=== PATIENT | male | born 1960 | race Caucasian/White ===

== ENCOUNTER 2019-04-19 08:51 | Outpatient (CLI) | payer OTHER ==
[~2019-04-19] VITALS: Ht 185.4 cm; Wt 88.6 kg
--- NOTE | ~2019-04-19 | HEMODYNAMI ---
PATIENT:LJ MCMILLAN MEDICAL RECORD: [id number] : 58 LOCATION:D.CAT ADMISSION DATE: 04/19/19 Generatedon:04/19/201913:20 Patient name: LJ MCMILLAN Patient #: [id number] SSN: : 1960 Date of study: 04/19/2019 Page: Of Hemodynamic Procedure Report Patient Data Patient Demographics Procedure consent was obtained First Name: LJ Gender: Male Last Name: HIPOLITO : 1960 Middle Initial: A Age: 58 year(s) Patient #: [id number] Race: Unknown Additional ID: [id number] Contact details [address]: [address] [place] [address] State: [place] City: [place] Zip code: [address] Admission Admission Data Admission Date: 04/19/2019 Admission Time: 8:51 Admit Source: Emergency department Procedure Procedure Types Cath Procedure Diagnostic Procedure LHC LHC w/Coronaries FFR/IVUS FFR Initial Sedation Charges Moderate Sedation up to 30 minutes PCI Procedure PTCA PTCA Initial Procedure Description Procedure Date Procedure Date: 04/19/2019 Procedure Start Time: 12:33 Procedure End Time: 13:18 Procedure Staff Name Function Dany Bonner MD Performing Physician Wendy Treadwell RT Monitor Miguel Villanueva RT Scrub Jillian Castaneda RN Nurse Anthony Finney RN Weir Fisherman Procedure Data Cath Procedure Fluoroscopy Diagnostic fluoroscopy Total fluoroscopy Time: 17 time: 17 min min Diagnostic fluoroscopy Total fluoroscopy dose: dose: 1240 mGy 1240 mGy Contrast Material Contrast Material Type Amount (ml) Isovue 300 168 Entry Location Entry Primary Successful Side Size Upsize Upsize Entry Closure Succes sful Closure Location (Fr) 1 (Fr) 2 (Fr) Remarks Device Remarks Radial Right 6 Fr artery Short Femoral Right 6 Fr 7 Fr Exoseal artery Short Short Estimated blood loss: 10 ml Diagnostic catheters Device Type Used For End Catheter Placement DIAGNOSTIC Sherman 110cm 5 Procedure Fr catheter ([id number]) Procedure Complications No complications Procedure Medications Medication Administration Route Dosage 0.9% NaCl I.V. 100 ml/hr Oxygen etCO2 Nasal cannula 2 l/min Lidocaine 2% added to field 20 Heparin Flush Bag added to field 2 bags (1000units/500ml NS) Radial Cocktail added to field 1 syringe (Verapamil 2mg/Nitro 400mcg/Heparin 1500units) Versed I.V. 2 mg Fentanyl I.V. 50 mcg Heparin Bolus I.V. 4000 units Integrilin (Bolus I.V. 7.9 ml 2mg/ml) Fentanyl I.V. 50 mcg Versed I.V. 2 mg Fentanyl I.V. 50 mcg Hemodynamics Rest Pre Cath Intra NCS Post Cath Vital Signs Time Heart Resp SPO2 etCO2 NIBP (mmHg) Rhythm Pain Sedation Rate (ipm) (%) (mmHg) Status Level (bpm) 12:26:22 53 16 98 34.3 142/70(118) SB 0 (11) 10(A) , No pain 12:30:44 59 19 98 32.1 137/76(111) SB 0 (11) 10(A) , No pain 12:34:56 63 13 97 19.4 134/79(105) NSR 0 (11) 10(A) , No pain 12:39:12 61 13 98 29.8 135/75(92) NSR 0 (11) 9(A) , No pain 12:43:28 65 12 98 32.1 135/77(98) NSR 0 (11) 9(A) , No pain 12:47:49 59 11 96 34 133/71(105) SB 0 (11) 9(A) , No pain 12:52:03 61 11 98 35 129/78(97) NSR 0 (11) 10(A) , No pain 12:56:21 62 11 98 21.6 132/69(98) NSR 0 (11) 9(A) , No pain 13:00:37 58 13 97 32 133/76(104) SB 0 (11) 9(A) , No pain 13:04:53 60 11 97 36.4 132/80(112) NSR 0 (11) 9(A) , No pain 13:09:11 63 11 98 32.8 141/71(98) NSR 0 (11) 9(A) , No pain 13:13:33 56 11 98 15.6 131/75(102) SB 0 (11) 10(A) , No pain 13:17:47 58 15 97 32.8 130/79(103) SB 0 (11) 10(A) , No pain Medications Time Medication Route Dose Verified Delivered Reason Not es Effectiveness by by 12:28:21 0.9% NaCl I.V. 100 Dany Jillian used for ml/hr Kailey Castaneda taker off 12:28:28 Oxygen etCO2 2 l/min Dany Jillian used for Nasal Kailey Castaneda procedure cannula RN 12:28:33 Lidocaine 2% added 20ml Dany Dany for local to vial Kailey Bonner MD anesthetic field 12:28:38 Heparin Flush added 2 bags Dany Dany used for Bag to Kailey Bonner MD procedure (1000units/500ml field NS) 12:28:43 Radial Cocktail added 1 Dany Dany used for (Verapamil to syringe Kailey Bonner MD procedure 2mg/Nitro field 400mcg/Heparin 1500units) 12:33:36 Versed I.V. 2 mg Dany Jillian for sedation Kailey Castaneda RN 12:33:42 Fentanyl I.V. 50 mcg Dany Jillian for sedation Kailey Castaneda RN 12:38:46 Fentanyl I.V. 50 mcg Dany Jillian for sedation Kailey Castaneda RN 12:46:16 Heparin Bolus I.V. 4000 Dany Jillian for vania ified units Kailey Castaneda anticoagulation with Dr. ALFREDO Zarate 12:46:29 Integrilin I.V. 7.9 ml Dany Jillian for was pippa (Bolus 2mg/ml) Kailey Castaneda antiplatelet 2.1mL RN therapy 12:54:12 Versed I.V. 2 mg Dany Jillian for sedation Kailey Castaneda RN 12:54:35 Fentanyl I.V. 50 mcg Dany Jillian for sedation Kailey Castaneda RN Procedure Log Time Note 12:00:07 Anthony Finney RN sent for patient. Start room use. 12:13:41 Informed consent obtained and on chart 12:13:45 Admit Source: Emergency department 12:14:00 Diagnostic Cath status Emergency 12:14:08 Time tracking: Regular hours (M-F 7:00 - 5:00) 12:14:11 Plan of Care:Hemodynamics will remain stable., Cardiac rhythm will remain stable., Comfort level will be maintained., Respiratory function will remain adequate., Patient/ family verbilizes understanding of procedure., Procedure tolerated without complication., Recovers from procedure without complications.. 12:17:58 Patient received from ED to CCL 1 Alert and oriented. Tansferred to table in Supine position. 12:17:59 Warm blankets applied, and renae hugger turned on for patient comfort. 12:17:59 Correct patient and procedure confirmed by team. 12:18:00 ECG and BP/O2 sat monitors applied to patient. 12:18:01 Pre-procedure instructions explained to patient. 12:18:02 Pre-op teaching completed and patient verbalized understanding. 12:18:08 H&P Date Dictated: 04/19/2019 New H&P dictated by physician.. 12:18:11 Family in waiting room. 12:18:13 Patient NPO since Breakfast. 12:25:14 Vital chart was started 12:28:21 0.9% NaCl 100 ml/hr I.V. was administered by Jillian Castaneda RN; used for procedure; 12:28:28 Oxygen 2 l/min etCO2 Nasal cannula was administered by Jillian Castaneda RN; used for procedure; 12:28:33 Lidocaine 2% 20ml vial added to field was administered by Dany Bonner MD; for local anesthetic; 12:28:38 Heparin Flush Bag (1000units/500ml NS) 2 bags added to field was administered by Dany Bonner MD; used for procedure; 12:28:43 Radial Cocktail (Verapamil 2mg/Nitro 400mcg/Heparin 1500units) 1 syringe added to field was administered by Dany Bonner MD; used for procedure; 12:31:20 Rhythm: sinus bradycardia 12:31:20 Full Disclosure recording started 12:31:29 Is patient on blood thinner?Yes 12:31:36 PRE LOADED ON PLAVIX 12:31:39 Is the patient allergic to Iodine/contrast media? No. 12:31:41 Patient diabetic? No. 12:31:44 Previous problem with sedation/anesthesia? No ? 12:31:46 Snore? Yes 12:31:47 Sleep apnea? Yes 12:31:48 Deviated septum? No 12:31:48 Opens mouth fully? Yes 12:31:49 Sticks out tongue? Yes 12:32:02 Airway obstruction? Yes CHRONC BRONCHITIS 12:32:05 Dentures? No ? 12:32:09 Modified Bhavesh's test Ulnar < 7 seconds 12:32:11 Patient pain scale 2/10 ?. 12:32:14 IV patent on arrival in right hand with 0.9% NaCl at [facility]. 12:32:18 Lab results completed and on chart. 12:32:21 Right Radial & Right Groin area was prepped with chlora-prep and draped in sterile fashion 12:32:22 Alarms reviewed by R. N. 12:32:22 Sharps counted by scrub and verified by R.N. 12:32:26 Use device set Radial Dx or PCI 12:32:27 ACIST Syringe (64150) opened to sterile field. 12:32:29 Medline Cath Pack ([id number]) opened to sterile field. 12:32:31 Bag Decanter (2002S) opened to sterile field. 12:32:32 ACIST Hand Control (31601) opened to sterile field. 12:32:33 ACIST Manifold (63618) opened to sterile field. 12:32:33 Tegaderm 4 x 4 (1626W) opened to sterile field. 12:32:42 MBrace Wrist Support ([id number]) opened to sterile field. 12:32:43 DIAGNOSTIC WIRE .035 260cm J wire (580372) opened to sterile field. 12:32:44 SHEATH 6FR Slender (65-9790) opened to sterile field. 12:32:52 --------ALL STOP TIME OUT------ 12:32:53 Final Timeout: patient, procedure, and site verified with staff and physician. All members of the team are in agreement. 12:32:55 Right Radial & Right Groin site verified by team. 12:32:57 Maximum allowable Isovue 300 dose 300ml. Physician notified. (300ml for normal creatinines. For patients with creatinine of 1.7 or higher multiply weight(kg) x 5 divided by creatinine.) 12:33:00 Fire Safety Assessment: A--An alcohol-based skin anteseptic being used preoperatively., C--Open oxygen or nitrous oxide is being used., D--An ESU, laser, or fiber-optic light is being used. 12:33:03 Physical assessment completed. ASA score P 2 - A patient with mild systemic disease as per Dany Bonner MD. 12:33:04 Sedation plan: IV Moderate Sedation Medication:Versed, Fentanyl 12:33:33 Procedure started. 12:33:36 Versed 2 mg I.V. was administered by Jillian Castaneda RN; for sedation; 12::42 Fentanyl 50 mcg I.V. was administered by Jillian Castaneda RN; for sedation; 12:33:43 Local anesthetic to right radial artery with Lidocaine 2% by Dany Bonner MD.INITIAL ACCESS ONLY 12:35:12 Zero performed for pressure channel P1 12:35:22 A 6 Fr Short sheath was inserted into the Right Radial artery 12:35:25 Zero performed for pressure channel P1 12:35:29 Zero performed for pressure channel P1 12:35:40 A DIAGNOSTIC Sherman 110cm 5 Fr catheter (918119) was advanced over the wire and used for Procedure. 12:35:42 Zero performed for pressure channel P1 12:37:12 LV gram done using CRAIN 12:37:14 Injector settings: Ml/sec: 7, Volume: 15, 12:37:19 EF : 50 % 12:37:57 Catheter removed. 12:38:07 UNABLE TO ENGAGE RCA, LCA 12:38:36 GUIDE 6FR XBLAD 3.5 SH catheter ([id number]) opened to sterile field. 12:38:46 Fentanyl 50 mcg I.V. was administered by Jillian Castaneda RN; for sedation; 12:38:54 GUIDE 6FR AR 2.0 catheter (ST1VO96) opened to sterile field. 12:39:05 6 Fr XBLAD 3.5 SH guide catheter was inserted over the wire 12:40:54 LCA angiography performed. 12:41:07 Guide catheter removed. 12:41:23 GUIDE 6FR XBLAD 4.0 catheter ([id number]) opened to sterile field. 12:41:42 INFLATOR Merit BasixCompak (KU6699) opened to sterile field. 12:41:42 [place] Verrata Plus pressure wire (87575O) opened to sterile field. 12:43:02 6 Fr AR 2 guide catheter was inserted over the wire 12:43:37 CHOICE PT Extra Support 182cm wire ([id number]) opened to sterile field. 12:43:58 CHOICE ES 182 wire advanced. 12:44:13 Wire removed. 12:44:14 Guide catheter removed. 12:44:29 NEED TO GO FEMORAL. 12:44:39 Local anesthetic to right femoral artery with Lidocaine 2% by Dany Bonner MD.ADDITIONAL ACCESS 12:44:55 SHEATH 6FR Holland (TWE705) opened to sterile field. 12:45:24 A 6 Fr Short sheath was inserted into the Right Femoral artery 12:45:53 6 Fr AR 2 guide catheter was inserted over the wire 12:46:16 Heparin Bolus 4000 units I.V. was administered by Jillian Castaneda RN; for anticoagulation; verified with Dr. Bonner 12:46:29 Integrilin (Bolus 2mg/ml) 7.9 ml I.V. was administered by Jillian Castaneda RN; for antiplatelet therapy; wasted 2.1mL 12:46:52 Guide Catheter removed. pressure damping. 12:47:06 GUIDE 6FR AR 2.0 SH catheter ([id number]) opened to sterile field. 12:47:56 6 Fr AR 2 SH guide catheter was inserted over the wire 12:48:11 CHOICE ES182 wire advanced. 12:51:38 FIELDER XT J 300cm guide wire ([id number]) opened to sterile field. 12:51:47 CHOICE WIRE REMOVED 12:52:18 FIELDER 300 wire advanced. 12:54:12 Versed 2 mg I.V. was administered by Jillian Castaneda RN; for sedation; 12:54:35 Fentanyl 50 mcg I.V. was administered by Jillian Castaneda RN; for sedation; 12:54:53 WIRE REMOVED 12:55:21 Guide Catheter removed. unable to cannulate vessel. 12:55:57 SHEATH 7FR Holland (VRX466) opened to sterile field. 12:56:21 GUIDE 7FR HS II SH catheter ([id number]) opened to sterile field. 12:56:49 Sheath upsized to a 7 Fr Short. 12:57:15 7 Fr HS 2 SH guide catheter was inserted over the wire 12:58:39 CHOICE Floppy Straight 300cm guide wire (73216371) opened to sterile field. 12:59:03 CHOICE ES 300 wire advanced. 13:00:29 Wire removed. 13:00:32 Guide Catheter removed. unable to cannulate vessel. 13:01:30 GUIDE 7FR AR 2.0 SH catheter ([id number]) opened to sterile field. 13:01:38 7 Fr AR 2 SH guide catheter was inserted over the wire 13:03:06 CHOICE ES 300 wire advanced. 13:05:20 Inflate balloon Inflation number: 1 A EMERGE OTW 1.5 x 15 balloon ([id number]) was prepped and advanced across the Prox RCA , then inflated to 17 BRADLEY for 0:10 (min:sec) . 13:05:33 Balloon removed over the wire. 13:05:34 Wire removed. 13:05:34 Guide catheter removed. 13:05:50 6 Fr XBLAD 4 guide catheter was inserted over the wire 13:08:01 Guide Catheter removed. unable to cannulate vessel. 13:08:50 GUIDE 6FR EBU 4.5 catheter (BH6BXX63) opened to sterile field. 13:08:59 6 Fr EBU 4.5 guide catheter was inserted over the wire 13:09:48 FFR/IFR wire advanced. 13:10:30 Wire advanced across lesion. 13:10:47 LAD lesion measured at .95 with IFR 13:10:53 Wire removed. 13:10:56 Guide catheter removed. 13:11:08 EXOSEAL 7Fr (EX700) opened to sterile field. 13:11:11 TR BAND Standard (USR07SFM) opened to sterile field. 13:11:23 Sheath removed intact; hemostasis achieved with Exoseal to the Right Femoral artery. 13:11:29 Procedure ended.(Physican Out) 13:12:31 Fluoroscopy time 17.00 minutes. 13:12:34 Fluoroscopy dose: 1240 mGy 13:12:34 Flurop Dose total: 1240 13:12:39 Contrast amount:Isovue 300 168ml. 13:12:40 Sharps counted by scrub and verified by R.N. 13:12:44 Post-op/insertion site Right Femoral artery dressed using a 4 x 4 and Tegaderm. 13:12:49 Post-procedure physical assessment completed. ASA score P 2 - A patient with mild systemic disease as per Dany Bonner MD. 13:12:51 Post procedure rhythm: sinus bradycardia 13:12:53 Estimated blood loss: 10 ml 13:12:54 Post procedure instruction explained to patient.Patient verbalizes understanding. 13:12:55 Patient needs reinforcement of post procedure teaching. 13:14:04 Procedure type changed to Cath procedure, Diagnostic procedure, LHC, LHC w/Coronaries, FFR/IVUS, FFR Initial, Sedation Charges, Moderate Sedation up to 30 minutes, PCI procedure, PTCA, PTCA Initial 13:16:46 Procedure and supply charges have been captured, reviewed, submitted and are correct. 13:16:51 Procedure Complication : No complications 13:16:53 Vital chart was stopped 13:17:04 TR band inflated with 12cc of air. 13:18:15 See physician's report for complete and final results. 13:18:20 Report given to Pre/Post Procedure Room. 13:18:23 Patient transfered to Pre/Post Procedure Room with Bed. 13:18:26 Procedure ended. 13:18:26 Full Disclosure recording stopped 13:18:28 End room use (Document Last) Intervention Summary Intervention Notes Time ActionType Lesion and Equipment Action# Pressure Duration Attributes Used 13:05:20 Inflate Prox RCA EMERGE OTW 1 17 00:10 balloon 1.5 x 15 balloon ([id number]) Device Usage Item Name Manufacture Quantity Catalog Number Hospital Part Current Minimal Lot# / Charge Number Stock Stock Serial# Code ACIST Acist 1 49104 500134 106098 038522 20 Syringe Medical (43501) Systems Inc Medline Cath Medline 1 [id number] 569347 03460 031085 5 Pack ([id number]) Bag Decanter Microtek 1 2001S 128011 29541 300760 5 (2001S) Medical Inc. ACIST Hand Acist 1 11332 877907 256140 021782 5 Control Medical (07057) Systems Inc ACIST Acist 1 50852 579100 342651 726365 5 Manifold Medical (60351) Systems Inc Tegaderm 4 x 3M 1 1626W 691086 825816 099656 5 4 (1626W) MBrace Wrist Advanced 1 140-0250-00 628951 88490 141903 5 Support Vascular ([id number]) Dynamics DIAGNOSTIC St [place] 1 520423 669863 896005 512144 30 WIRE .035 260cm J wire (832790) SHEATH 6FR Terumo 1 [id number] 815365 163731 017145 5 Slender (80-1060) DIAGNOSTIC Terumo 1 40-6553 367789 346060 442045 5 Sherman 110cm 5 Fr catheter (288513) GUIDE 6FR Cardinal 1 98219597 758693 987769 160826 3 XBLAD 3.5 SH Health catheter (01900232) GUIDE 6FR AR Medtronic 1 AP5JC97 812397 59905 909029 1 2.0 catheter (SM3MF84) GUIDE 6FR Cardinal 1 83588290 072584 506834 193836 3 XBLAD 4.0 Health catheter (94530411) INFLATOR Merit 1 DN0134 786742 660500 001897 15 Secret Space Medical BasixCompak (IQ0082) [place] 1 06920G 364050 234560253 224654 5 Verrata Plus pressure wire (75953Y) CHOICE PT [place] 1 [id number] 933617 470680 773618 5 Extra Scientific Support 182cm wire (7480583H4) SHEATH 6FR Terumo 1 RTM162 385091 388367 607050 40 Holland (JWD896) GUIDE 6FR AR Medtronic 1 [id number] 084147 32813 503105 1 2.0 SH catheter ([id number]) FIELDER AMY J Luna 1 [id number] 739445 611030 337706 5 300cm guide Vascular wire ([id number]) SHEATH 7FR Terumo 1 XEJ801 311958 145887 527231 5 Holland (FUN547) GUIDE 7FR HS Medtronic 1 [id number] 221034 453231 179254 0 II SH catheter (SW7YNEOWC) CHOICE [place] 1 [id number] 466075 972364 924733 5 Floppy Scientific Straight 300cm guide wire (14267420) GUIDE 7FR AR Medtronic 1 [id number] 016250 369140 440352 0 2.0 SH catheter (QL5KI74PS) EMERGE OTW [place] 1 [id number] 387533 551436 367114 5 [id number] 1.5 x 15 Scientific balloon ([id number]) GUIDE 6FR Medtronic 1 [id number] 883906 32458 806712 0 EBU 4.5 catheter (NK9DSN08) EXOSEAL 7Fr Cardinal 1 EX700 471389 918034 692234 5 (EX700) Health TR BAND Terumo 1 PGV04-DWR 129547 883259 514204 40 Standard ([id number]) Signature Audit Darling Stage Time Signature Unsigned Intra-Procedure 04/19/2019 Wendy Treadwell 1:20:11 PM RT(R) Signatures Monitor : Wendy Treadwell Signature : RT Date : Time : [place] [id number] [facility] [address]
[2019-04-19 08:56] VITALS: Ht 185.4 cm; Wt 88.6 kg
[2019-04-19] MEDS ORDERED: MOBIC7.5 MG PO (08:59)
[2019-04-19] MEDS ORDERED: ZOCOR40 MG PO (08:59)
[2019-04-19] MEDS ORDERED: BLOOD PRESSURE (09:00)
[2019-04-19] MEDS ORDERED: ALBUTEROL SULF8.5 GM INH (09:05)
[2019-04-19 09:26] LABS: BASOPHILS 0.4 % (0-2); EOSINOPHILS 3.9 % (0-7); HEMATOCRIT 46.1 % (42.0-54.0); HEMOGLOBIN 16.7 g/dL (13.5-17.5); IMMATURE GRANULOCYTES 0.3 % (0-5); LYMPHOCYTES 28.6 % (15-50); MCH 33.1 pg (26.0-34.0); MCHC 36.2 g/dL (31.0-37.0); MCV 91.5 fL (80.0-100.0); MEAN PLATELET VOLUME 9.7 fL (7.4-10.4); MONOCYTES 6.2 % (2-11); NEUTROPHILS 60.6 % (40-80); PLATELET COUNT 186 10x3/uL (130-400); RBC 5.04 10x6/uL (4.20-6.10); RDW 12.7 % (11.5-14.5); WBC 7.7 10x3/uL (4.8-10.8)
[2019-04-19 09:38] LABS: APTT 25.6 SECONDS (22.8-39.4); INR 0.91 (0.85-1.17); PROTIME 11.8 SECONDS (11.6-15.0)
[2019-04-19 09:41] LABS: ALBUMIN 3.7 g/dL (3.4-5.0); ALKALINE PHOSPHATASE 153 U/L (46-116); ALT (SGPT) 45 U/L (10-68); BILIRUBIN - TOTAL 0.44 mg/dL (0.2-1.3); CALC OSMOLALITY 284 mosm/kg (275-300); CALCIUM 9.2 mg/dL (8.5-10.1); CARBON DIOXIDE 27.8 mmol/L (21.0-32.0); CHLORIDE - SERUM 106 mmol/L (98-107); CREATININE - SERUM 1.1 mg/dL (0.6-1.3); GLUCOSE 136 mg/dL (74-106); POTASSIUM - SERUM 3.9 mmol/L (3.5-5.1); PROTEIN - SERUM 7.7 g/dL (6.4-8.2); SODIUM 141 mmol/L (136-145); UREA NITROGEN 18 mg/dL (7-18); eGFR NON AFRICAN AMERICAN 73 mL/min (90-120)
[2019-04-19 09:51] LABS: CKMB 1.4 U/L (0.0-3.6); CREATINE KINASE 132 UL (21-232)
[2019-04-19 09:52] LABS: TROPONIN-I < 0.017 ng/mL (0.000-0.060)
[2019-04-19 12:08] VITALS: BP 158/99
--- NOTE | 2019-04-19 13:30 | NUR ---
PT RECEIVED VIA STRECTHER FROM [employer]. PT SLEEPING BUT AROUSABLE TO VERBAL STIMULI. TR BAND AND IMMOBILIZER TO R WRIST, DRESSING CDI NO BLEEDING OR HEMATOMA NOTED. CAP REFILL BRISK, EXTREMITY WARM AND PINK. 7FR EXOCELE TO R GROIN, DRESSING CDI NO BLEEDING OR HEMATOMA NOTED. LEG PINK AND WARM, PEDAL PULSES PALAPBLE. HR SINUS TAINA AT 54, BP 113/67, 02 SAT 97 ON 2L/NC. PT INSTRUCTED TO KEEP HEAD ON PILLOW AND R LEG STRAIGHT, ALSO TO NOT USE R ARM. HE VERBALIZED UNDERSTANDING. CALL LIGHT IN REACH. PT DENIES PAIN OR DISCOMFORT
[2019-04-19] MEDS ORDERED: ISOSORBIDE MONO30 M1 PO (13:34)
[2019-04-19] MEDS ORDERED: ASPIRIN81 MG PO (13:34)
--- NOTE | 2019-04-19 13:45 | NUR ---
PT SLEEPING COMFORTABLY, TR BAND IN PLACE DRESSING REMAINS CDI NO BLEEDING OR SWELLING NOTED. R GROIN SOFT, DRESSING CDI NO BLEEDING OR SWELLING NOTED. VSS. FAMILY AT BEDSIDE, CALL LIGHT IN REACH
--- NOTE | 2019-04-19 14:15 | NUR ---
PT RESTING, MORE AWAKE REQUESTING SOMETHING TO DRINK. SPRITE GIVEN. TR BAND AND DRESSING INTACT, NO BLEEDING OR SWELLING NOTED. R GROIN SOFT, DRESSING CDI NO BLEEDING OR HEMATOMA NOTED. FAMILY REMAINS AT BEDSIDE, CALL LIGHT IN REACH
--- NOTE | 2019-04-19 14:46 | NUR ---
R WRIST W/O SWELLING OR BLEEDING, TR BAND AND IMMOBILIZER IN PLACE. R GROIN DRESSING REMAINS CDI NO BLEEDING OR HEMATOMA NOTED. PT TOLERATING FLUIDS W/O NAUSEA OR VOMITIING. HR 54, BP 111/63, 02 SAT 97 ON 2L/NC. PT DENIES DISCOMFORT OR NEEDS AT THIS TIME. CALL LIGHT IN REACH
--- NOTE | 2019-04-19 15:15 | NUR ---
PT AWAKE, VISITING W FAMILY. VSS, TR BAND IN PLACE, DRESSING CDI NO BLEEDING OR HEMATOMA NOTED. R GROIN REMAINS SOFT, NO BLEEDING OR SWELLING NOTED. PEDAL PULSES PALPABLE. CALL LIGHT IN REACH
--- NOTE | 2019-04-19 15:36 | NUR ---
REPORT AND CARE FROM PHILLY GARCÍA, PT IS ALERT, DENIES ANY C/O PAIN OR NAUSEA. DRESSING TO RIGHT GROIN IS CDI, AREA IS SOFT AND NONTENDER. PEDAL PULSES PALPABLE. SINUS TAINA AT 54, BP IS 110/61. TR BAND IS CDI, FINGERS WARM, CAP REFILL IS BRISK. PT VISITING WITH FAMILY IN THE ROOM.
--- NOTE | 2019-04-19 16:32 | NUR ---
HOB ELEVATED 30 DEGREES, DRESSING CDI TO RIGHT GROIN, AREA IS SOFT AND NONTENDER. 3 CC WEANED FROM TR BAND WITH NO BLEEDING NOTED. SANDWICH SERVED, PO FLUIDS AT BEDSIDE. VSS, PT DENIES ANY C/O.
--- NOTE | 2019-04-19 16:38 | NUR ---
2CC OF AIR WEANED FROM TR BAND WITH NO BLEEDING NOTED.
--- NOTE | 2019-04-19 17:03 | NUR ---
3 CC F AIR WEANED FROM TR BAND WITH NO BLEEDING NOTED. FINGERS WARM AND CAP REFILL IS BRISK. DRESSING TO RIGHT GROIN IS CDI, PEDAL PULSES PALPABLE. VSS.
--- NOTE | 2019-04-19 17:40 | NUR ---
1717 ALL REMAINING AIR WEANED FROM TR BAND WITH NO BLEEDING NOTED. FINGERS WARM AND PULSES PALPABLE. DC INSTRUCTIONS REVIEWED WITH PT, AND SON WHO VERBALIZE UNDERSTANDING. DRESSING TO RIGHT GROIN IS CDI, PT IS DRESSING FOR DC WITH ASSIST. IV DC'D FROM RIGHT HAND WITH CATH TIP INTACT. 1730 2X2 AND TEGADERM CDI TO RIGHT WRIST.WRIST IMMOBILIZER IN PLACE. PT HAS AMBULATED TO THE BATHROOM AND VOIDED QS. IS ALERT AND DENIES ANY C/O. PT ESCORTED TO PRIVATE AUTO VIA WC BY NURSE WITH DRIVING HIM HOME.
--- NOTE | 2019-04-21 10:00 | CN ---
PATIENT NAME:LJ MCMILLAN MEDICAL RECORD: [id number] : 58 LOCATION:D.CAT ADMIT DATE: ACCOUNT: [id number] CONSULTING PHYSICIAN: LOIS LI MD REFERRING PHYSICIAN: SOPHIE MCGEE MD DATE OF CONSULTATION: 04/19/2019 DIAGNOSES: 1. Unstable angina. 2. Coronary artery disease. 3. Previous PTCA and stent in 2004. 4. Hyperlipidemia. 5. Smoking history. 6. COPD. HISTORY OF PRESENT ILLNESS: Mr. Mcmillan presents with severe chest discomfort. He was at rest and developed acute 9/10 chest pain. It persisted for greater than 30 minutes. He received sublingual nitro. He continues to have his anginal chest pain. It is just like that of his previous myocardial infarction that he had in 2004. He underwent PTCA and stent then. He has done well up until this point. His EKG shows right bundle-branch block and nonspecific ST-T abnormalities, but no acute ST elevation. PHYSICAL EXAMINATION: GENERAL APPEARANCE: Well-nourished, well-developed, appears stated age. Level of distress, comfortable. PSYCHIATRIC: Mental status, alert, normal affect. Orientation, oriented to time, place and person. EYES: Lids and conjunctiva, noninjected. No discharge, no pallor. ENT: Lips, teeth, gums, normal dentition. Oropharynx, no cyanosis, no pallor. NECK: Carotid arteries, bilateral normal upstroke, no bruits, no thrills. JUGULAR VEINS: No jugular venous pressure or distention. CERVICAL LYMPH NODES: Nontender, nonenlarged. THYROID: Not enlarged. Nontender. No nodules. LUNGS: Respiratory effort, unlabored. CHEST: Normal curvature. No thoracic deformity. No chest wall tenderness. Percussion, resonant. Auscultation, clear. No wheezes, no rales, no rhonchi. CARDIOVASCULAR: Precordial exam, nondisplaced. No heaves or pericardial thrills. Rate and rhythm, regular. Heart sounds, normal S1, normal S2. No S3, no gallop, no rub. Systolic murmur, not heard. Diastolic murmur, not heard. EXTREMITIES: No cyanosis, no edema. Peripheral pulses, full and equal in all extremities, except as noted. No bruits appreciated. ABDOMEN: Soft, nondistended. Normal aorta. No bruit. Nontender. No masses. Liver, nontender, no hepatomegaly. Spleen, nontender, no splenomegaly. MUSCULOSKELETAL: No joint tenderness. No joint swelling. No erythema. NEUROLOGICAL: Normal gait, normal strength, normal tone. SKIN: Warm and dry. OVERALL IMPRESSION: Unstable angina, acute onset, just like that of his previous myocardial infarction. At this time, most likely, he has recurrent hemodynamically significant coronary artery disease. We will not give him beta-evan secondary to his heart rate being in the 60s. We will give him a calcium evan secondary to his systolic blood pressure being in the 150s as well as nitrates and proceed with coronary angiography. Further care depends upon findings of the angiography. CONSULT REPORT [id number] LJ MCMILLAN TRANSINT:[id number] Voice Confirmation ID: [id number] DOCUMENT ID: [id number] LOIS LI MD at 1000 CC: [id number] DICTATION DATE: 04/19/19 1100 MEDICAL STENOGRAPHER: 04/19/19 1329 DEP CLI 04/19/19 [place] 78[address] [place] [address]
--- NOTE | 2019-04-21 10:00 | OP ---
PATIENT NAME: LJ MCMILLAN MEDICAL RECORD: [id number] :58 LOCATION:[facility] ADMISSION DATE: SURGEON: LOIS LI MD DATE OF OPERATION: 04/19/2019 PROCEDURES: 1. Left heart catheterization. 2. Selective coronary angiography. 3. Left ventriculogram. 4. Attempted, but failed PTCA and stent to RCA. 5. IFR of LAD. INDICATIONS: Unstable angina and coronary artery disease. PROCEDURE PERFORMED: After informed consent was obtained and detailed explanation of risks, benefits as well as alternative therapies, the patient elected to proceed with angiogram and attempted angioplasty. The right femoral area was prepped and draped in normal sterile fashion. Right femoral artery was cannulated via modified Seldinger technique with placement of 7-Persian sheath. All catheters exchanged this sheath. FINDINGS: Left ventriculogram was performed in a standard 30-degree CRAIN view, reveals good cardiac wall motion throughout all segments. Overall ejection fraction estimated at 50%. SELECTIVE CORONARY ANGIOGRAPHY: 1. Left main is with no significant angiographic disease. 2. Left anterior descending is tortuous proximally. There is a questionable stenosis, however, IFR was normal. 3. Left circumflex has mild irregularities, but no flow-limiting stenosis. 4. Right coronary is chronically totally occluded proximally at the site of the previously placed stent. We attempted to cross this with multiple wires and balloons. No wire or balloon would cross this total occlusion. There are excellent [id number] collaterals. OVERALL IMPRESSION: Total occlusion of the previously placed stent in the RCA with [id number] collaterals. Medical management of the coronary artery disease and cardiac risk factors. TRANSINT:[id number] Voice Confirmation ID: [id number] DOCUMENT ID: [id number] LOIS LI MD at 1000 CC: [id number] DICTATION DATE: 04/19/19 1316 [employer]ILY [employer] COUNSELLOR: 04/19/19 1500 DEP CLI 04/19/[address] [id number]
== END 2019-04-19 17:30 | disposition home or self-care (01) ==
LOC: D.CATH 08:51 → D.ER 08:51 → EDSTATUS 11:28 → D.CLR 13:30 → D.CATH 17:30
PROVIDERS: ATTEND Family Medicine
DX: I25.110 Atherosclerotic heart disease of native coronary artery with unstable angina pectoris (principal); I25.82 Chronic total occlusion of coronary artery; T82.855A Stenosis of coronary artery stent, initial encounter; Z01.812 Encounter for preprocedural laboratory examination